=== PATIENT | male | born 1965 | race Caucasian/White ===

== ENCOUNTER → 2016-09-04 | Outpatient (CLI) | payer OTHER ==
[~2016-09-04] MED LIST: ASPIRIN81 M1 PO; CLINDAMYCIN150 MG PO; NORCO 325 MG-51 TAB PO; PERCOCET 325 MG1 TA4 PO; REMERON15 MG PO; SEROQUEL50 MG PO; VICODIN ES 7501 TAB PO
[2016-09-04 07:26] LABS: BASO # 0.1 10*3/uL (0.0-0.1); BASO % 0.7 % (0.0-1.0); EOS # 0.1 10*3/uL (0.0-0.4); EOS % 1.2 % (1.0-4.0); HEMATOCRIT 38.3 % (42.0-52.0); HEMOGLOBIN 12.9 g/dl (14.0-18.0); LYMPH # 2.2 10*3/uL (1.3-4.4); LYMPH % 27.1 % (27.0-41.0); MEAN CORPUSCULAR HGB 30.6 pg (27.0-31.0); MEAN CORPUSCULAR HGB CONC 33.7 g/dl (33.0-37.0); MEAN PLATELET VOLUME 9.3 fl (9.6-12.3); MONO # 0.4 10*3/uL (0.1-1.0); MONO % 4.7 % (3.0-9.0); NEUT # 5.4 10*3/uL (2.3-7.9); NEUT % 66.1 % (47.0-73.0); PLATELET COUNT AUTOMATED 344 10*3/uL (130-400); RED BLOOD COUNT 4.21 10*6/uL (4.50-5.90); RED CELL DISTRI WIDTH 12.6 % (0-14.5); WHITE BLOOD COUNT 8.2 10*3/uL (4.8-10.8)
[2016-09-04 07:55] LABS: ALBUMIN 3.7 gm/dl (3.1-4.5); ALKALINE PHOSPHATASE 70 U/L (45-117); BILIRUBIN, TOTAL 0.3 mg/dl (0.2-1.0); BUN 18 mg/dl (7-24); CARBON DIOXIDE 32 mmol/L (21-32); CHLORIDE 106 mmol/L (98-107); EST GLOM FILT AFRICAN AMERICAN > 60 ml/min; GLUCOSE 90 mg/dL (65-99); POTASSIUM 4.3 mmol/L (3.5-5.1); SGOT/AST 20 IU/L (3-35); SGPT/ALT 18 U/L (12-78); SODIUM 141 mmol/L (136-145); TOTAL PROTEIN 6.6 gm/dL (6.4-8.2)
== END | disposition home or self-care (01) ==
LOC: CT 08-28 13:00 → LAB 07:08 → CT 08:00
PROVIDERS: Nurse Practitioner Family
DX: N28.1 Cyst of kidney, acquired (principal); J43.9 Emphysema, unspecified; F17.200 Nicotine dependence, unspecified, uncomplicated

== ENCOUNTER → 2016-11-30 | Outpatient (CLI) | payer OTHER ==
[2016-11-30 10:28] LABS: BASO # 0.1 10*3/uL (0.0-0.1); BASO % 0.3 % (0.0-1.0); EOS % 0.2 % (1.0-4.0); HEMATOCRIT 40.1 % (42.0-52.0); HEMOGLOBIN 13.3 g/dl (14.0-18.0); IG # 0.1 10*3/uL (0.0-0.1); LYMPH # 1.7 10*3/uL (1.3-4.4); LYMPH % 10.4 % (27.0-41.0); MEAN CELL VOLUME 89.7 fl (80.0-94.0); MEAN CORPUSCULAR HGB 29.8 pg (27.0-31.0); MEAN CORPUSCULAR HGB CONC 33.2 g/dl (33.0-37.0); MEAN PLATELET VOLUME 10.2 fl (9.6-12.3); MONO # 0.9 10*3/uL (0.1-1.0); MONO % 5.6 % (3.0-9.0); NEUT # 13.4 10*3/uL (2.3-7.9); NEUT % 82.9 % (47.0-73.0); PLATELET COUNT AUTOMATED 310 10*3/uL (130-400); RED BLOOD COUNT 4.47 10*6/uL (4.50-5.90); RED CELL DISTRI WIDTH 12.6 % (0-14.5); WHITE BLOOD COUNT 16.1 10*3/uL (4.8-10.8)
[2016-11-30 10:49] LABS: IRON 22 ug/dL (65-175); IRON SATURATION 9 %; UIBC 217 ug/dL (110-410)
[2016-11-30 13:10] LABS: FERRITIN 140.7 ng/mL (22.0-322.0)
== END | disposition home or self-care (01) ==
LOC: LAB 08:56
PROVIDERS: Nurse Practitioner Family
DX: D64.9 Anemia, unspecified (principal)